=== PATIENT | female | born 1970 | race Native Hawaiian/Other Pacific Islander ===

== ENCOUNTER 2017-03-11 20:12 | Emergency (ER) | payer OTHER ==
[~2017-03-11] VITALS: Ht 154.9 cm; Wt 68.0 kg
== END 2017-03-11 20:37 | disposition home or self-care (01) ==
LOC: ED 20:12
DX: M25.562 Pain in left knee (principal)
CPT/HCPCS: 99281

== ENCOUNTER 2020-05-05 12:09 | Emergency (ER) | payer OTHER ==
[~2020-05-05] VITALS: Ht 152.4 cm; Wt 74.8 kg
[2020-05-05 12:19] VITALS: TEMP 99.1
[2020-05-05 13:08] LABS: PLATELET COUNT 343 K/uL (152-353)
[2020-05-05 13:18] LABS: POTASSIUM 3.8 mmol/L (3.6-5.2)
[2020-05-05 13:19] LABS: PARTIAL THROMBOPLASTIN TIME 23.9 SECONDS (24.5-33.6)
[2020-05-05 14:55] VITALS: BP 141/87
== END 2020-05-05 15:00 | disposition home or self-care (01) ==
LOC: ED 12:09
PROVIDERS: Family Medicine
DX: I10 Essential (primary) hypertension (principal); R51.9 Headache, unspecified; F17.210 Nicotine dependence, cigarettes, uncomplicated
CPT/HCPCS: 80053; 85027; 85610; 85730; 99283